=== PATIENT | female | born 1955 | race Caucasian/White ===

== ENCOUNTER 2017-04-20 02:05 | Emergency (ER) | payer OTHER ==
[~2017-04-20] VITALS: Ht 172.7 cm; Wt 65.0 kg
[2017-04-20 02:08] VITALS: BP 176/93; PULSE 101; RESP 16; TEMP 98.6; O2SAT 96
--- NOTE | 2017-04-20 02:35 | PD ---
HPI Chief Complaint: Flank/Kidney Pain Time Seen by Provider: 02:20 Travel History International Travel<30 days: No Contact w/Intl Traveler<30days: No Traveled to known affect area: No History of Present Illness HPI Patient is a 62-year-old female presents with right lower quadrant abdominal pains blood-tinged urine and a feeling that she has recurrent kidney stone. She is currently visiting from [place]. She states that the pain was just not getting better Decided to come in and be seen. She states took ibuprofen 400 mg prior to arrival and this did nothing for her. She appears fairly comfortable smiling and quite pleasant on my initial examination. They're concerned because they have to go back to [place] in the next week or so and her traveling to her primary care physician follow up with. Denies any fever denies any nausea vomiting diarrhea denies any cough congestion shortness of breath weight loss or smoking history. PFSH Social History Tobacco Use: No Allergies-Medications (Allergen,Severity, Reaction): Coded Allergies: No Known Allergies (Unverified , 04/20/17) Reported Meds & Prescriptions Reported Meds & Active Scripts Active Ultram (Tramadol HCl) 50 Mg Tab 50 Mg PO Q6H PRN Levaquin (Levofloxacin) 750 Mg Tablet 1 Tab PO DAILY 14 Days Review of Systems Except as stated in HPI: all other systems reviewed are Neg Physical Exam Narrative GENERAL: Well-developed well-nourished, smiling, pleasant no distress. SKIN: Focused skin assessment warm/dry. HEAD: Atraumatic. Normocephalic. EYES: Pupils equal and round. No scleral icterus. No injection or drainage. ENT: No nasal bleeding or discharge. Mucous membranes pink and moist. NECK: Trachea midline. No JVD. CARDIOVASCULAR: Regular rate and rhythm. No murmur appreciated. RESPIRATORY: No accessory muscle use. Clear to auscultation. Breath sounds equal bilaterally. GASTROINTESTINAL: Abdomen soft, non-tender, nondistended. Hepatic and splenic margins not palpable. No CVA tenderness no rebound no percussive tenderness. No tenderness to the right lower quadrant. 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 MUSCULOSKELETAL: No obvious deformities. No clubbing. No cyanosis. No edema. NEUROLOGICAL: Awake and alert. No obvious cranial nerve deficits. Motor grossly within normal limits. Normal speech. PSYCHIATRIC: Appropriate mood and affect; insight and judgment normal. Data Data Last Documented VS Vital Signs Date Time Temp Pulse Resp B/P Pulse Ox O2 Delivery O2 Flow Rate FiO2 04/20/17 02:48 98 Room Air 04/20/17 02:08 98.6 101 16 176/93 Orders Urinalysis - C+S If Indicated (04/20/17 02:20) Basic Metabolic Panel (Bmp) (04/20/17 02:42) Complete Blood Count With Diff (04/20/17 02:42) Iv Access Insert/Monitor (04/20/17 02:42) Ecg Monitoring (04/20/17 02:42) Oximetry (04/20/17 02:42) Ondansetron Inj (Zofran Inj) (04/20/17 02:45) Sodium Chlor 0.9% 1000 Ml Inj (Ns 1000 M (04/20/17 02:42) Sodium Chloride 0.9% Flush (Ns Flush) (04/20/17 02:45) Ketorolac Inj (Toradol Inj) (04/20/17 02:45) Urine Culture (04/20/17 02:55) Ct Abd/Pel W/O Iv Contrast (04/20/17 ) Chest, Pa & Lat (04/20/17 ) Ct Thorax/ Chest W Iv Contrast (04/20/17 ) Iohexol 350 Inj (Omnipaque 350 Inj) (04/20/17 05:07) Radiology Film Requests (04/20/17 ) Labs Laboratory Tests Test 04/20/17 02:55 White Blood Count 10.4 TH/MM3 Red Blood Count 4.66 MIL/MM3 Hemoglobin 13.6 GM/DL Hematocrit 41.0 % Mean Corpuscular Volume 88.0 FL Mean Corpuscular Hemoglobin 29.3 PG Mean Corpuscular Hemoglobin 33.3 % Concent Red Cell Distribution Width 13.8 % Platelet Count 275 TH/MM3 Mean Platelet Volume 7.4 FL Neutrophils (%) (Auto) 86.8 % Lymphocytes (%) (Auto) 8.3 % Monocytes (%) (Auto) 4.2 % Eosinophils (%) (Auto) 0.4 % Basophils (%) (Auto) 0.3 % Neutrophils # (Auto) 9.1 TH/MM3 Lymphocytes # (Auto) 0.9 TH/MM3 Monocytes # (Auto) 0.4 TH/MM3 Eosinophils # (Auto) 0.0 TH/MM3 Basophils # (Auto) 0.0 TH/MM3 CBC Comment DIFF FINAL Differential Comment Urine Color YELLOW Urine Turbidity CLEAR Urine pH 5.0 Urine Specific [place] 1.021 Urine Protein TRACE mg/dL Urine Glucose (UA) NEG mg/dL Urine Ketones NEG mg/dL Urine Occult Blood SMALL Urine Nitrite NEG Urine Bilirubin NEG Urine Urobilinogen LESS THAN 2.0 MG/DL Urine Leukocyte Esterase LARGE Urine RBC 15 /hpf Urine WBC 15 /hpf Urine WBC Clumps RARE Urine Squamous Epithelial 1 /hpf Cells Urine Transitional Epithelial <1 /hpf Cells Urine Bacteria RARE /hpf Microscopic Urinalysis Comment CULTURE INDICATED Sodium Level 142 MEQ/L Potassium Level 3.5 MEQ/L Chloride Level 108 MEQ/L Carbon Dioxide Level 23.8 MEQ/L Anion Gap 10 MEQ/L Blood Urea Nitrogen 22 MG/DL Creatinine 1.17 MG/DL Estimat Glomerular Filtration 47 ML/MIN Rate Random Glucose 143 MG/DL Calcium Level 9.1 MG/DL MDM Medical Decision Making Medical Screen Exam Complete: Yes Emergency Medical Condition: Yes Differential Diagnosis Kidney stone, appendicitis unlikely, urinary tract infection, pyelonephritis unlikely. Narrative Course Patient is a 62-year-old female presents emergency burn right lower quadrant abdominal pain feels like a kidney stone. CT examination of her abdomen did confirm a kidney stone which is fairly small but also did show incidental finding of a pleural effusion. Chest x-ray and CT of her chest were obtained which did not show any masses but appears to have an atelectatic right lower lobe. Possible mucous plugging as an etiology but cancer possibility discussed with the patient at length. Discussed that she will have need for diagnostic pleurodesis in the near future. She was offered admission to the hospital but appears quite well no respiratory symptoms and vital signs within normal limits like to go home to follow-up with her primary care physician in [place]. We' ll place on antibiotics as well as pain management for kidney stone. Discussed return to ED criteria. Last 24 hours Impressions Chest X-Ray 04/20/17 0000 Signed Impressions: Service Date/Time: Thursday, April 20, 2017 04:23 - CONCLUSION: 1. Moderate to large right subpulmonic pleural effusion. 2. Right basilar density likely atelectasis. Esteban Rios MD Chest CT 04/20/17 Signed Impressions: Service Date/Time: Thursday, April 20, 2017 05:04 - CONCLUSION: 1. Large right pleural effusion. 2. Bibasilar consolidation likely atelectasis. Esteban Rios MD Abdomen/Pelvis CT 04/20/17 0000 Signed Impressions: Service Date/Time: Thursday, April 20, 2017 03:58 - CONCLUSION: 1. Right-sided hydronephrosis secondary to distal right ureteral calculus measuring 3-4 mm. 2. Moderate right pleural effusion and right basilar density. 3. Minimal ascites. 4. Left-sided parapelvic renal cysts. 5. Scattered diverticulosis without diverticulitis. 6. Small fat containing umbilical hernia. Esteban Rios MD Diagnosis Primary Impression: Pleural effusion Additional Impression: Kidney stone Med/Other Pt SpecificInfo: Prescription(s) given Scripts Tramadol (Ultram)50 Mg Tab50 Mg PO Q6H PRN (PAIN) #15 TAB Ref 0 Prov:Edgar Ornelas MD 04/20/17 Levofloxacin (Levaquin)750 Mg Tablet1 Tab PO DAILY 14 Days Ref 0 Prov:Edgar Ornelas MD 04/20/17 Disposition: 01 DISCHARGE HOME Condition: Stable Edgar Ornelas MD Apr 20, 2017 02:35
[2017-04-20] MEDS ORDERED: SODIUM CHLOR 0.9% 1000 ML INJ 1,000 ML IV SCH (02:42)
[2017-04-20] MEDS ORDERED: KETOROLAC TROMETHAMINE 30 MG/ML (IVP) VIAL IVP ONE (02:45)
[2017-04-20] MEDS ORDERED: ONDANSETRON HCL 4 MG/2 ML VIAL IVP ONE (02:45)
[2017-04-20] MEDS ORDERED: SODIUM CHLORIDE 0.9% FLUSH 10 ML FLUSH IV FLUSH PRN (02:45)
[2017-04-20 02:48] VITALS: O2SAT 98
[2017-04-20 03:10] LABS: AUTOMATED NEUTROPHIL # 9.1 TH/MM3 (1.8-7.7); BASOPHIL % 0.3 % (0.0-2.0); EOSINOPHIL % 0.4 % (0.0-4.0); HEMO FLAGS DIFF FINAL; LYMPH % 8.3 % (9.0-44.0); LYMPHOCYTE # 0.9 TH/MM3 (1.0-4.8); MEAN CORPUSCULAR HEMOGLOBIN 29.3 PG (27.0-34.0); MEAN CORPUSCULAR HGB CONC 33.3 % (32.0-36.0); MONO % 4.2 % (0.0-8.0); NEUT % 86.8 % (16.0-70.0); PLATELET COUNT 275 TH/MM3 (150-450); RED BLOOD COUNT 4.66 MIL/MM3 (4.00-5.30); RED CELL DISTRIBUTION WIDTH 13.8 % (11.6-17.2); WHITE BLOOD COUNT 10.4 TH/MM3 (4.0-11.0)
[2017-04-20 03:16] LABS: BACTERIA, URINE RARE /hpf; BLOOD, URINE SMALL (NEG); COMMENT (UR) CULTURE INDICATED; CULTURE IF INDICATED CULTURE INDICATED; GLUCOSE,URINE NEG (NEG); KETONE, URINE NEG (NEG); NITRITE,URINE NEG (NEG); SQUAMOUS EPITHELIAL CELL URINE 1 /hpf (0-5); TRANSITIONAL EPI CELLS, URINE <1 /hpf; URINE COLOR YELLOW (YELLW/STRAW)
[2017-04-20 03:23] LABS: BICARBONATE 23.8 MEQ/L (21.0-32.0); POTASSIUM 3.5 MEQ/L (3.5-5.1)
--- NOTE | 2017-04-20 04:52 | RADRPT ---
EXAM DATE/TIME: 04/20/2017 03:58 [facility] COMPARISON: No previous studies available for comparison. INDICATIONS : Right flank pain. ORAL CONTRAST: No oral contrast ingested. RADIATION DOSE: 6.45 CTDIvol (mGy) MEDICAL HISTORY : Hypertension. Renal calculi. Diverticulitis. SURGICAL HISTORY : None. ENCOUNTER: Initial ACUITY: 1 day PAIN SCALE: 7/10 LOCATION: Right flank TECHNIQUE: Volumetric scanning of the abdomen and pelvis was performed. Using automated exposure control and ad justment of the mA and/or kV according to patient size, radiation dose was kept as low as reasonably achievable to obtain optimal diagnostic quality images. DICOM format image data is available electro nically for review and comparison. FINDINGS: LOWER LUNGS: Moderate right pleural effusion and right basal density. LIVER: Homogeneous density without lesion. There is no dilation of the biliary tree. No calcified gallston es. Minimal ascites. SPLEEN: Normal size without lesion. PANCREAS: Within normal limits. KIDNEYS: Normal in size and shape. There is no mass, stone, or hydronephrosis on the left. Mild hydronephrosi s and hydroureter leading to a right distal ureteral calculus measuring 3-4 mm. Multiple left-sided p arapelvic renal cysts.. ADRENAL GLANDS: Within normal limits. VASCULAR: There is no aortic aneurysm. BOWEL/MESENTERY: The stomach, small bowel, and colon demonstrate no acute abnormality. There is no free intraperitone al air or fluid. Diverticulosis without diverticulitis. ABDOMINAL WALL: Small fat containing umbilical hernia. RETROPERITONEUM: There is no lymphadenopathy. BLADDER: No wall thickening or mass. REPRODUCTIVE: Within normal limits. INGUINAL: There is no lymphadenopathy or hernia. MUSCULOSKELETAL: Within normal limits for patient age. CONCLUSION: 1. Right-sided hydronephrosis secondary to distal right ureteral calculus measuring 3-4 mm. 2. Moderate right pleural effusion and right basilar density. 3. Minimal ascites. 4. Left-sided parapelvic renal cysts. 5. Scattered diverticulosis without diverticulitis. 6. Small fat containing umbilical hernia. Esteban Rios MD on April 20, 2017 at 4:47 Board Certified Radiologist. This report was verified electronically.
--- NOTE | 2017-04-20 04:53 | RADRPT ---
EXAM DATE/TIME: 04/20/2017 04:23 [facility] COMPARISON: No previous studies available for comparison. INDICATIONS : Right side lower chest/upper abdominal pain MEDICAL HISTORY : Hypertension. SURGICAL HISTORY : None. ENCOUNTER: Initial ACUITY: 1 day PAIN SCORE: 8/10 LOCATION: Bilateral chest FINDINGS: PA and lateral views of the chest demonstrate moderate to large right pleural effusion. Right basilar density. Left lung clear. Heart normal size. The cardiomediastinal contours are unremarkable. [place] structures are intact. CONCLUSION: 1. Moderate to large right subpulmonic pleural effusion. 2. Right basilar density likely atelectasis. Esteban Rios MD on April 20, 2017 at 4:51 Board Certified Radiologist. This report was verified electronically.
[2017-04-20] MEDS ORDERED: IOHEXOL 350 MG/ML 10 ML VIAL (for RAD DIAG) IV ONE (05:07)
--- NOTE | 2017-04-20 06:04 | RADRPT ---
EXAM DATE/TIME: 04/20/2017 05:04 [facility] COMPARISON: No previous studies available for comparison. INDICATIONS : Abnormal chest radiograph. IV CONTRAST: 73 cc Omnipaque 350 (iohexol) IV RADIATION DOSE: 3.96 CTDIvol (mGy) MEDICAL HISTORY : Hypertension. SURGICAL HISTORY : None. ENCOUNTER: Initial ACUITY: 1 day PAIN SCALE: 0/10 LOCATION: Right chest TECHNIQUE: Volumetric scanning of the chest was performed. Using automated exposure control and adjustment of t he mA and/or kV according to patient size, radiation dose was kept as low as reasonably achievable to obtain optimal diagnostic quality images. DICOM format image data is available electronically for review and comparison. Follow-up recommendations for detected pulmonary nodules are based at a minimum on nodule size and pa tient risk factors according to Fleischner Society Guidelines. FINDINGS: LUNGS: There is no pneumothorax. No concerning pulmonary nodule is visualized. Right basilar consolidation. PLEURA: There is a large right-sided pleural effusion. MEDIASTINUM: The heart and great vessels demonstrate no acute abnormality. There is no mediastinal or hilar lymph adenopathy. AXILLAE: Within normal limits. No lymphadenopathy. SKELETAL: Within normal limits for patient age. MISCELLANEOUS: The visualized upper abdominal organs demonstrate no acute abnormality. CONCLUSION: 1. Large right pleural effusion. 2. Bibasilar consolidation likely atelectasis. Esteban Rios MD on April 20, 2017 at 6:00 Board Certified Radiologist. This report was verified electronically.
[2017-04-20] MEDS ORDERED: LEVA750T9 PO (06:23)
[2017-04-20] MEDS ORDERED: ULTR50TA5 PO (06:23)
== END 2017-04-20 06:35 | disposition home or self-care (01) ==
LOC: NEPE 02:05
DX: J90 Pleural effusion, not elsewhere classified (principal); N13.2 Hydronephrosis with renal and ureteral calculous obstruction; N28.1 Cyst of kidney, acquired; K57.90 Diverticulosis of intestine, part unspecified, without perforation or abscess without bleeding; K42.9 Umbilical hernia without obstruction or gangrene
CPT/HCPCS: 71020; 71260; 74176; 80048; 81001; 85025; 87086; 96361; 96374; 96375; 99285; J1885; J2405; J7030; Q9967